=== PATIENT | female | born 1995 | race Caucasian/White ===

== ENCOUNTER → 2017-09-09 | Outpatient (CLI) | payer BC ==
[~2017-09-09] MED LIST: ASPIRIN 81M81 MG/TA2 PO; CEFTIN 250250 MG/TAB PO; MOTRIN 600600 MG/TAB PO; NIMOTOP30 MG; NORCO 325 MG-51 TAB PO; PERCOCET 325 MG1 TA2 PO; PREDNISONE10 MG PO
== END ==
LOC: COL.RAD 14:15
DX: Z30.431 Encounter for routine checking of intrauterine contraceptive device (principal); N92.6 Irregular menstruation, unspecified

== ENCOUNTER → 2017-09-29 | Outpatient (CLI) | payer BC | LOC: COL.RAD 09:43 | DX: R90.82 White matter disease, unspecified (principal); I67.7 Cerebral arteritis, not elsewhere classified; F41.8 Other specified anxiety disorders | CPT/HCPCS: A9585 ==